=== PATIENT | female | born 1945 | race Caucasian/White ===

== ENCOUNTER → 2016-12-15 | Outpatient (CLI) | payer MEDICARE ==
[2016-12-15 11:03] LABS: Blood Urea Nitrogen 18 mg/dL (7-17); Non-African American GFR(MDRD) >60 (>60 ml/min/1.73 sqM)
--- NOTE | 2016-12-15 12:15 | CT ---
EXAMINATION TYPE: CT ChestAbdPelvis w con DATE OF EXAM: 12/15/2016 COMPARISON: CT cap March 28, 2016. HISTORY: Follow up to pancreatic CA CT DLP: 953 mGycm. Automated Exposure Control for Dose Reduction was Utilized. CONTRAST: CT scan of the thorax, abdomen and pelvis is performed with oral and with IV Contrast, patient inject ed with 100 mL of Omnipaque 300. FINDINGS: LUNGS: The lungs are grossly clear, there is no concerning parenchymal mass or nodule identified. T here is no pleural effusion or pneumothorax seen. The tracheobronchial tree is patent. MEDIASTINUM: There are no greater than 1 cm hilar or mediastinal lymph nodes. No cardiomegaly or pe ricardial effusion is seen. [place] coronary artery calcification is redemonstrated. There is however post CABG changes with mediastinal clips and sternal wires seen. There is stable right internal jugul ar Mediport catheter. Heterogeneous enlarged thyroid gland is stable, suspect multinodular goiter. OTHER: No additional significant abnormality is seen. LIVER/GB: There is 4 cm thin-walled cyst left hepatic dome on axial image 44. Liver is low dense cons istent with diffuse fatty infiltration. No new suspicious lesions clearly seen in liver. Dependent ca lcified gallstones in gallbladder redemonstrated. PANCREAS: Visualized pancreas remains atrophic with ductal dilatation unchanged from prior. Ill-defin ed soft tissue between level of celiac axis and SMA encasing small caliber vessels measures 2.3 x 2.1 cm on axial image 56 not significantly changed from prior exams. SPLEEN: No significant abnormality is seen. ADRENALS: No significant abnormality is seen. KIDNEYS: No significant abnormality is seen. BOWEL: Oral contrast does not reach ileal level making evaluation slightly suboptimal. There is no yeager spicious small or large bowel dilatation. There is mild wall thickening of the sigmoid colon, colitis at this level cannot be entirely excluded. GENITAL ORGANS: Uterus is surgically absent. Remnant both ovaries are unremarkable. LYMPH NODES: No greater than 1cm abdominal or pelvic lymph nodes are appreciated. OSSEOUS STRUCTURES: Multilevel spurring in the spine is present. Osseous structures are demineralized . There is demineralization with spur disc complexes in the lower lumbar spine and facet arthropathy. There is spinal canal effacement lower lumbar levels. OTHER: No significant additional abnormality is seen. IMPRESSION: Stable irregular soft tissue posterior to pancreas. No new mass or adenopathy is seen to suggest neoplastic progression or recurrence.
== END | disposition home or self-care (01) ==
LOC: RADPROMAIN 10:15
PROVIDERS: ATTEND Internal Medicine Hematology & Oncology
DX: C25.9 Malignant neoplasm of pancreas, unspecified (principal)
CPT/HCPCS: 82565; 84520; 71260; 74177; Q9967; J1642

== ENCOUNTER → 2017-03-15 | Outpatient (CLI) | payer MEDICARE | END | disposition home or self-care (01) | LOC: LABWHC1 09:47 | PROVIDERS: ATTEND Family Medicine | DX: R10.30 Lower abdominal pain, unspecified (principal); K58.0 Irritable bowel syndrome with diarrhea; M54.5 Low back pain | CPT/HCPCS: 87045; 87046; 87328; 87329 ==

== ENCOUNTER → 2017-03-27 | Outpatient (CLI) | payer MEDICARE ==
--- NOTE | 2017-03-27 11:00 | CT ---
EXAMINATION TYPE: CT abdomen pelvis wo con DATE OF EXAM: 03/27/2017 COMPARISON: CT chest abdomen pelvis 12/15/2016 INDICATION: Patient has complains of nausea and vomiting at time of study. Patient had abnormal US o f the abdomen. Patient has a history of hepatitis C. history of pancreas cancer DLP: 836 mGycm, Automated exposure control for dose reduction was used. CONTRAST: 0 mL of Omnipaque 350. Study performed with Oral Contrast TECHNIQUE: Axial images were obtained from above the diaphragm to the pubic rami in the axial plane a t 5 mm thick sections. Reconstructed images are reviewed on the computer in the coronal plane. FINDINGS: Limited CT sections are obtained the lung bases. Small right and very minimal left pleural effusion is present. No discrete masses or infiltrates are otherwise evident.. Coronary artery calcification is present. Hiatal hernia is present. CT ABDOMEN: Liver: There is a 3.1 x 4.6 cm cyst in the superior right lobe liver. This measures 5 Hounsfield unit s. Spleen: Normal Pancreas: Atrophic noncontrast images of limited evaluation. Some prominence of the duct within the b vikram is not excluded. Adrenal glands: The adrenal glands are normal. Gallbladder: Gallstones are present. No pericholecystic fluid is evident. Kidneys: No masses are evident. There is mild left hydronephrosis. No cysts are present. There is a 0.5 cm round calcification in the proximal left ureter. No additional renal or ureteral stones are ev ident. Aorta: Vascular calcification is within the aorta. Inferior vena cava: Normal. CT PELVIS: Loops of bowel within the abdomen and pelvis are normal. There are loops of bowel which are incom pletely distended or lack oral contrast limiting their evaluation. Appendix: What may be the appendix and the right lower quadrant is prominent measuring 1.3 cm and con tains a punctate calcification could be a appendicolith. Inflammatory change is not identified adjace nt however. Series 5 image 53 Urinary bladder: Normal. Genitourinary structures: Uterus and ovaries are absent. Osseous structures: No suspicious lytic or sclerotic lesions. IMPRESSIONS: 1. 0.5 cm obstructing proximal left ureteral stone with mild left hydronephrosis. 2. Possible dilated appendix without adjacent inflammatory changes. Correlate with the patient's surg ical history and symptoms. 3. Bilateral pleural effusions
== END | disposition home or self-care (01) ==
LOC: RADCTMAIN 09:44
PROVIDERS: ATTEND Family Medicine
DX: N13.2 Hydronephrosis with renal and ureteral calculous obstruction (principal)
CPT/HCPCS: 74176

== ENCOUNTER → 2017-04-04 | Outpatient (CLI) | payer MEDICARE ==
[2017-04-04 09:25] LABS: Blood Urea Nitrogen 16 mg/dL (7-17); Non-African American GFR(MDRD) 54 (>60 ml/min/1.73 sqM)
--- NOTE | 2017-04-04 10:46 | CT ---
EXAMINATION TYPE: CT abdomen w con DATE OF EXAM: 04/04/2017 COMPARISON: NONE HISTORY: Pancreatic cancer CT DLP: 912 mGycm Automated exposure control for dose reduction was used. TECHNIQUE: Helical acquisition of images was performed from the lung bases through the top of iliac crest to include entire abdomen. CONTRAST: Performed with Oral Contrast and with IV Contrast, patient injected with 100 ml mL of Visipaque 320. FINDINGS: LUNG BASES: There is evidence of cardiomegaly. The lung bases are clear. LIVER/GB: 4.3 cm simple appearing cyst left hepatic lobe. Layering gallstones within the gallbladder. Small cystic duct stone is difficult to exclude. PANCREAS: Persistent atrophic changes of the pancreas with dilatation of the pancreatic duct. Persist ent soft tissue between the celiac and SMA measuring approximately 2 cm in greatest dimension versus 2.3 cm previously. SPLEEN: No significant abnormality is seen. ADRENALS: No significant abnormality is seen. KIDNEYS: No significant abnormality is seen. BOWEL: Moderate fecal stasis identified within the visualized bowel. Small bowel is of normal calibe r as visualized. LYMPH NODES: No significant abnormality is seen. OSSEOUS STRUCTURES: Degenerative changes lumbar spine. FREE AIR: No free air is visualized. IMPRESSION: 1. Stable soft tissue situated between the celiac and SMA. No new soft tissue mass of the pancreas. 2. Stable hepatic cyst. 3. Layering gallstones within the gallbladder. Small cystic duct stone is difficult to exclude.
== END | disposition home or self-care (01) ==
LOC: RADPROMAIN 08:14
PROVIDERS: ATTEND Internal Medicine Hematology & Oncology
DX: K80.80 Other cholelithiasis without obstruction (principal); K76.89 Other specified diseases of liver; C25.9 Malignant neoplasm of pancreas, unspecified
CPT/HCPCS: 82565; 84520; 74160; 36415; Q9967; J1642

== ENCOUNTER → 2018-03-27 | Outpatient (CLI) | payer MEDICARE ==
[2018-03-27 08:20] VITALS: BP 155/78; PULSE 71; RESP 16; TEMP 98.4
[2018-03-27 08:52] LABS: Calcium 8.2 mg/dL (8.4-10.2); Potassium 3.7 mmol/L (3.5-5.1); Total Bilirubin 0.2 mg/dL (0.2-1.3)
[2018-03-27 19:12] LABS: Hemoglobin A1C 7.9 % (4.0-6.0)
== END | disposition home or self-care (01) ==
LOC: PROCWHC3 07:58
PROVIDERS: ATTEND Family Medicine
DX: E11.65 Type 2 diabetes mellitus with hyperglycemia (principal); C25.9 Malignant neoplasm of pancreas, unspecified
CPT/HCPCS: 80061; 80053; 86301; 82043; 82570; 83036; 36591; J1642